=== PATIENT | male | born 1960 | race African-American/Black ===

== ENCOUNTER 2019-01-25 11:10 | Emergency (ER) | payer OTHER ==
[~2019-01-25] VITALS: Ht 180.3 cm; Wt 100.0 kg
[2019-01-25] MEDS ORDERED: IBUPROFEN 600MG TABLET PO ONE (15:15)
[2019-01-25 16:09] VITALS: BP 154/87
== END 2019-01-25 16:11 | disposition home or self-care (01) ==
LOC: ER 11:14
DX: S39.012A Strain of muscle, fascia and tendon of lower back, initial encounter (principal); Z88.0 Allergy status to penicillin; V49.49XA Driver injured in collision with other motor vehicles in traffic accident, initial encounter; Y93.89 Activity, other specified; Y92.89 Other specified places as the place of occurrence of the external cause; Y99.8 Other external cause status
CPT/HCPCS: 71045; 73000; 99283